=== PATIENT | female | born 1985 | race Caucasian/White ===

== ENCOUNTER → 2018-05-19 | Outpatient (CLI) | payer OTHER ==
--- NOTE | 2018-05-19 10:03 | FL ---
Fluoroscopy INDICATION: Elevated right diaphragm. FINDINGS: Fluoroscopy time: 25 seconds. Images obtained: 0. Time observation is performed. The right diaphragm is elevated in relation to the left. There is norm al diaphragm motion with quiet respiratory motion. During sniffing there is normal diaphragm motion. No paradoxical motion of the right diaphragm is evident. IMPRESSIONS: 1. Normal diaphragm motion. 2. Elevation of the right diaphragm.
== END ==
LOC: RADFLWHC 09:22
PROVIDERS: ATTEND Internal Medicine Critical Care Medicine
DX: J98.6 Disorders of diaphragm (principal)
CPT/HCPCS: 76000

== ENCOUNTER → 2023-11-04 | Outpatient (CLI) | payer OTHER ==
--- NOTE | 2023-11-04 08:06 | MM ---
Reason for Exam: Clinical finding. Baseline mammogram. Indicated Problems: Pain of the left side (Global) for 1 Month(s). Patient History: Menarche at age 14. Patient has no children. Hormonal Contraceptives for 8 years from age 17 until age 25. Last menstrual period: 10/31/2023 Risk Values: Eliane 5 year model risk: 0.4%. NCI Lifetime model risk: 11.3%. Prior Study Comparison: Patient's first Mammogram. Tissue Density: There are scattered areas of fibroglandular density. Findings: Analyzed By CAD. Subareolar asymmetric density right CC view does not persist on the nipple in profile view. Compatible with superimposition shadow. No significant mass, suspicious microcalcification, or other discrete abnormality is seen. Overall Assessment: Incomplete: need additional imaging evaluation, BI-RAD 0 Management: Diagnostic Breast Ultrasound of the left breast. As ordered for pain. Electronically signed and approved by: Maria Elena Kaiser M.D. Radiologist
--- NOTE | 2023-11-04 08:22 | USB ---
Reason for Exam: Clinical finding. Patient History: Menarche at age 14. Patient has no children. Hormonal Contraceptives for 8 years from age 17 until age 25. Risk Values: Eliane 5 year model risk: 0.4%. NCI Lifetime model risk: 11.3%. Technique: Method: Whole Breast Handheld. Findings: The whole breast of the left breast, the axilla of the left breast and the retroareolar of the left breast were scanned. A complete US of all four quadrants of the breast, axilla, and retro-areolar region were reviewed. No solid or cystic masses are identified.. Overall Assessment: Negative, BI-RAD 1 Management: Screening Mammogram of both breasts in 1 year. Further clinical management of patient's left breast pain. A clinical breast exam by your physician is recommended on an annual basis and results should be correlated with mammographic findings. This exam should not preclude additional follow-up of suspicious palpable abnormalities. Results were given to the patient verbally at the time of exam. Electronically signed and approved by: Maria Elena Kaiser M.D. Radiologist
== END | disposition home or self-care (01) ==
LOC: RADMAMWWP 07:28
PROVIDERS: ATTEND Family Medicine
DX: R92.323 Mammographic fibroglandular density, bilateral breasts (principal); N63.10 Unspecified lump in the right breast, unspecified quadrant; N63.20 Unspecified lump in the left breast, unspecified quadrant; N64.4 Mastodynia
CPT/HCPCS: 77066; 76641; G0279; 77062

== ENCOUNTER → 2023-11-17 | Outpatient (CLI) | payer OTHER | END | disposition home or self-care (01) | LOC: RADNMMAIN 10:21 | PROVIDERS: ATTEND Family Medicine | DX: R07.89 Other chest pain (principal) ==